=== PATIENT | female | born 1990 | race Caucasian/White ===

== ENCOUNTER → 2017-05-24 | Emergency (ER) | payer OTHER ==
[~2017-05-24] VITALS: Ht 167.6 cm; Wt 79.4 kg
[~2017-05-24] MED LIST: DICLOFENAC POTA50 MG PO; ORPHENADRINE C100 MG PO; OSEL75CA PO; TUSSI PRES-B L120 M1 PO
== END | disposition home or self-care (01) ==
LOC: ER 08:25
DX: M54.2 Cervicalgia (principal)

== ENCOUNTER 2018-09-27 11:16 | Emergency (ER) | payer OTHER ==
[~2018-09-27] VITALS: Ht 167.6 cm; Wt 78.9 kg
== END 2018-09-27 19:52 | disposition home or self-care (01) ==
LOC: ER 11:16
DX: K52.89 Other specified noninfective gastroenteritis and colitis (principal)

== ENCOUNTER 2018-11-01 09:37 | Day surgery (SDC) | payer OTHER | END 2018-11-01 17:25 | disposition home or self-care (01) | LOC: AMB-ENDOS 09:37 | DX: K64.1 Second degree hemorrhoids (principal) ==

== ENCOUNTER 2020-07-12 15:12 | Outpatient (CLI) | payer OTHER | END 2020-07-12 15:18 | disposition home or self-care (01) | LOC: MRI 15:12 | PROVIDERS: ATTEND Chiropractor | DX: M50.20 Other cervical disc displacement, unspecified cervical region (principal); K46.9 Unspecified abdominal hernia without obstruction or gangrene | CPT/HCPCS: 72141 ==

== ENCOUNTER → 2022-03-07 | Outpatient (CLI) | payer OTHER | END | disposition home or self-care (01) | LOC: MAMO-SONO 11:24 | PROVIDERS: ATTEND Internal Medicine | DX: Z12.31 Encounter for screening mammogram for malignant neoplasm of breast (principal); M54.50 Low back pain, unspecified; E78.9 Disorder of lipoprotein metabolism, unspecified; E66.8 Other obesity; F41.9 Anxiety disorder, unspecified; F33.9 Major depressive disorder, recurrent, unspecified ==